=== PATIENT | female | born 1970 | race Caucasian/White ===

== ENCOUNTER 2019-05-14 13:59 | Emergency (ER) | payer OTHER ==
--- NOTE | 2019-05-14 14:31 | EDPHYS ---
Physician Documentation [facility] Name: Julianna Rollins Age: 49 yrs Sex: Female : 1970 Arrival Date: 05/14/2019 Time: 14:02 Bed 16 Private MD: ED Physician Erick Enriquez HPI: 05/14 14:30 This 49 yrs old Female presents to ER via Ambulatory with complaints of Nose kb Bleed. 14:30 The patient presents with a nose bleed, and the bleeding resolved prior to arrival. kb Onset: The symptoms/episode began/occurred just prior to arrival. Modifying factors: The symptoms are alleviated by nothing. the symptoms are aggravated by nothing. Associated signs and symptoms: The patient has no apparent associated signs or symptoms, Loss of consciousness: the patient experienced no loss of consciousness. Severity of symptoms: At their worst the symptoms were mild moderate in the emergency department the symptoms have resolved. The patient has experienced a previous episode. The patient has not recently seen a physician. Pt reports she has sinus issues ever since moving to [place] last year, but has never had nosebleeds. States her nose stays dry so she uses saline spray and neosporin to keep it moist every so often. States she had a nosebleed yesterday for about 5 minutes, then today for 15 minutes. Both resolved after applying pressure. . 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 - Social history:: Smoking status: unknown. - Ebola Screening: : No symptoms or risks identified at this time. ROS: 14:35 Constitutional: Negative for fever, chills, and weight loss, Cardiovascular: Negative kb for chest pain, palpitations, and edema, Respiratory: Negative for shortness of breath, cough, wheezing, and pleuritic chest pain, Abdomen/GI: Negative for abdominal pain, nausea, vomiting, diarrhea, and constipation, Back: Negative for injury and pain, MS/Extremity: Negative for injury and deformity, Skin: Negative for injury, rash, and discoloration, Neuro: Negative for headache, weakness, numbness, tingling, and seizure. 14:35 ENT: Positive for nose bleed. Exam: 14:35 Constitutional: This is a well developed, well nourished patient who is awake, alert, kb and in no acute distress. Head/Face: Normocephalic, atraumatic. ENT: Nares patent. No nasal discharge, no septal abnormalities noted. Tympanic membranes are normal and external auditory canals are clear. Oropharynx with no redness, swelling, or masses, exudates, or evidence of obstruction, uvula midline. Mucous membranes moist. Neck: Trachea midline, no thyromegaly or masses palpated, and no cervical lymphadenopathy. Supple, full range of motion without nuchal rigidity, or vertebral point tenderness. No Meningismus. Chest/axilla: Normal chest wall appearance and motion. Nontender with no deformity. No lesions are appreciated. Cardiovascular: Regular rate and rhythm with a normal S1 and S2. No gallops, murmurs, or rubs. Normal PMI, no JVD. No pulse deficits. Respiratory: Lungs have equal breath sounds bilaterally, clear to auscultation and percussion. No rales, rhonchi or wheezes noted. No increased work of breathing, no retractions or nasal flaring. Abdomen/GI: Soft, non-tender, with normal bowel sounds. No distension or tympany. No guarding or rebound. No evidence of tenderness throughout. Skin: Warm, dry with normal turgor. Normal color with no rashes, no lesions, and no evidence of cellulitis. MS/ Extremity: Pulses equal, no cyanosis. Neurovascular intact. Full, normal range of motion. Neuro: Awake and alert, GCS 15, oriented to person, place, time, and situation. Cranial nerves II-XII grossly intact. Motor strength 5/5 in all extremities. Sensory grossly intact. Cerebellar exam normal. Normal gait. Vital Signs: 14:04 BP 149 / 97; Pulse 106; Resp 18; Temp 98.1(O); Pulse Ox 97% on R/A; Weight 86.18 kg; hj Height 5 ft. 2 in. (157.48 cm); Pain 0/10; 14:04 Body Mass Index 34.75 (86.18 kg, 157.48 cm) MDM: 14:21 Patient medically screened. kb 14:30 Data reviewed: vital signs, nurses notes. Data interpreted: Pulse oximetry: on room air kb is 97 %. Interpretation: normal. Counseling: I had a detailed discussion with the patient and/or guardian regarding: the historical points, exam findings, and any diagnostic results supporting the discharge/admit diagnosis, the need for outpatient follow up, an ENT specialist, to return to the emergency department if symptoms worsen or persist or if there are any questions or concerns that arise at home. Administered Medications: No medications were administered Disposition: 16:04 Co-signature as Attending Physician, Erick Enriquez MD. rn Disposition: 05/14/19 14:30 Discharged to Home. Impression: Epistaxis. - Condition is Stable. - Discharge Instructions: Nosebleed, [id number]. - Medication Reconciliation Form, Thank You Letter, Antibiotic Education, Prescription Opioid Use form. - Follow up: Private Physician; When: 2 - 3 days; Reason: Recheck today's complaints, Continuance of care, Re-evaluation by your physician. Follow up: Emergency Department; When: As needed; Reason: Worsening of condition. Signatures: Imelda Adhikari, HOME CARE ASSOCIATE-C HOME CARE ASSOCIATE-Ckb Erick Enriquez MD MD rn Hall, Patricia, RN RN Jack Zaman RN RN Corrections: (The following items were deleted from the chart) 14:55 14:30 05/14/2019 14:30 Discharged to Home. Impression: Epistaxis. Condition is Stable. ph Forms are Medication Reconciliation Form, Thank You Letter, Antibiotic Education, Prescription Opioid Use. Follow up: Private Physician; When: 2 - 3 days; Reason: Recheck today's complaints, Continuance of care, Re-evaluation by your physician. Follow up: Emergency Department; When: As needed; Reason: Worsening of condition. kb
--- NOTE | 2019-05-14 14:31 | ER ---
Nurse's Notes [facility] Name: Julianna Rollins Age: 49 yrs Sex: Female : 1970 Arrival Date: 05/14/2019 Time: 14:02 Bed 16 Private MD: Diagnosis: Epistaxis Presentation: 05/14 14:02 Presenting complaint: Patient states: 15 mins ago, i started having nose bleed, and i hj had it yesterday too; denies trauma to the area; denies taking blood thinners;denies hx of nose bleed;. Transition of care: patient was not received from another setting of care. Onset of symptoms was May 14, 2019. Risk Assessment: Do you want to hurt yourself or someone else? Patient reports no desire to harm self or others. Initial Sepsis Screen: Does the patient meet any 2 criteria? No. Patient's initial sepsis screen is negative. Does the patient have a suspected source of infection? No. Patient's initial sepsis screen is negative. Care prior to arrival: None. 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 - Social history:: Smoking status: unknown. - Ebola Screening: : No symptoms or risks identified at this time. Screenin:30 Abuse screen: Denies threats or abuse. Denies injuries from another. Nutritional ph screening: No deficits noted. Tuberculosis screening: No symptoms or risk factors identified. Fall Risk None identified. Assessment: 14:30 General: Appears in no apparent distress. comfortable, well groomed, Behavior is calm, ph cooperative, appropriate for age, Denies fever, feeling ill. Pain: Denies pain. Neuro: Level of Consciousness is awake, alert, obeys commands, Oriented to person, place, time, situation, Denies weakness blurred vision dizziness, headache. Cardiovascular: Capillary refill < 3 seconds in bilateral fingers Patient's skin is warm and dry. Respiratory: Airway is patent Respiratory effort is even, unlabored, Respiratory pattern is regular, symmetrical. EENT: Nares with bleeding noted. Derm: Skin is intact, is healthy with good turgor, Skin is pink, warm \T\ dry. Musculoskeletal: Circulation, motion, and sensation intact. Range of motion: intact in all extremities. 14:55 Reassessment: Patient appears in no apparent distress at this time. Patient and/or ph family updated on plan of care and expected duration. Pain level reassessed. Patient is alert, oriented x 3, equal unlabored respirations, skin warm/dry/pink. Bleeding noted to have stopped, pt d/c home. Vital Signs: 14:04 BP 149 / 97; Pulse 106; Resp 18; Temp 98.1(O); Pulse Ox 97% on R/A; Weight 86.18 kg; hj Height 5 ft. 2 in. (157.48 cm); Pain 0/10; 14:04 Body Mass Index 34.75 (86.18 kg, 157.48 cm) ED Course: 14:02 Patient arrived in ED. hj 14:03 Triage completed. hj 14:04 Arm band placed on left wrist. hj 14:13 Lala Montoya, RN is Primary Nurse. 14:21 Imelda Adhikari FNP-C is PHCP. kb 14:21 Erick Enriquez MD is Attending Physician. kb 14:30 Patient has correct armband on for positive identification. Bed in low position. Call light in reach. 14:55 No provider procedures requiring assistance completed. Patient did not have IV access ph during this emergency room visit. Administered Medications: No medications were administered Outcome: 14:30 Discharge ordered by . kb 14:55 Patient left the ED. ph 14:55 Discharged to home ambulatory. ph 14:55 Condition: good 14:55 Discharge instructions given to patient, Instructed on discharge instructions, follow up and referral plans. Demonstrated understanding of instructions, follow-up care. Signatures: Imelda Adhikari FNP-C INGOT HEADER-Lala Galvez RN RN Jack Zaman RN RN Corrections: (The following items were deleted from the chart) 14:05 14:04 86.18 kg; Height 5 ft. 2 in.; BMI: 34.7; Pain 0/10; [facility]
== END 2019-05-14 14:55 | disposition home or self-care (01) ==
LOC: ER 13:59
DX: R04.0 Epistaxis (principal); I10 Essential (primary) hypertension
CPT/HCPCS: 99281